=== PATIENT | male | born 1940 | race Hispanic/Latino ===

== ENCOUNTER 2017-09-15 06:10 | Day surgery (SDC) | payer OTHER ==
[2017-09-14 13:17] LABS: Absolute Lymphocytes (CBC) 1.4 K/uL (0.7-4.9); Absolute Monocytes 0.4 K/uL (0.1-1.3); Absolute Neutrophil 4.7 K/uL (1.8-8.0); Basophils % 0.9 % (0-1.3); Eosinophils % 3.5 % (0-4.4); Hematocrit 40.8 % (39.6-49.0); Lymphocytes % 20.5 % (15.3-44.8); MCH 31.6 pg (27.0-35.0); MCV 90.8 fL (80-100); MPV 9.5 fL (7.6-11.3); Monocytes % 6.3 % (3.3-12.3); RBC Red Blood Cell Count 4.49 M/uL (4.33-5.43)
--- NOTE | 2017-09-14 19:06 | EKG ---
Test Date: 2017-09-14 Test Time: 12:43:16 Circuitry Negative Inspector: ALISIA MEASUREMENT RESULTS: Intervals: Rate: 63 AK: 138 QRSD: 92 QT: 404 QTc: 413 Garfield: P: 61 AK: 138 QRS: 12 T: 16 INTERPRETIVE STATEMENTS: Normal sinus rhythm Normal ECG Compared to ECG 02/03/1995 12:51:00 No significant changes Electronically Signed On 09-14-17 19:04:48 CDT by Bk Lopez
[2017-09-15] MEDS ORDERED: PROPOFOL 200 MG/20 ML VIAL IV ONE (07:06)
[2017-09-15] MEDS ORDERED: LIDOCAINE 2% MPF 5 ML VIAL ONE (07:07)
[2017-09-15] MEDS ORDERED: FENTANYL CITR 100 MCG/2 ML ONE ×2 (07:07→08:02)
[2017-09-15] MEDS ORDERED: ONDANSETRON HCL 40 MG/20 ML VIAL ONE (07:08)
[2017-09-15] MEDS ORDERED: BUPIVACA 0.5%/EPI 0.0005%/PF 30 ML VIAL ONE (07:33)
[2017-09-15] MEDS ORDERED: EPHEDRINE SULF 50 MG/10 ML SYR ONE (07:52)
[2017-09-15] MEDS ORDERED: GLYCOPYRROLATE 0.2 MG/ML SYR ONE ×2 (07:55)
[2017-09-15] MEDS ORDERED: CODEINE 30MG/APAP 300MG TAB ONE (10:03)
[2017-09-15 10:38] VITALS: BP 144/89; TEMP 96.6; O2SAT 99
--- NOTE | 2017-09-15 21:13 | OP ---
Date of Procedure: 09/15/2017 Surgeon: Enrique Fowler MD Preoperative Diagnosis: Right knee pain with mechanical symptoms, probable medial and lateral menisc al tears with loose bodies. 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 2.Tear of medial meniscus. 3.Tear of lateral meniscus. 4.Very large loose body. Procedures: 1.Debridement of medial and lateral menisci. 2.Removal of large loose body. Estimated Blood Loss: Less than 10 cc. Complications: There were no complications. Specimens: The loose body was sent to Pathology. Indication For Operation: Mr. Ivory is the patient who came to see me with complaints of locking a nd pain related to his knee. We discussed with him that he does have significant degenerative joint disease, however, a loose body is detected and this may be the source of some of his mechanical sympt oms. He states he understands things as presented and at this time wishes to proceed with arthroscop y for removal of loose body and perhaps alleviating his mechanical symptoms. He has no guarantee mike t this will alleviate his pain as he will have underlying arthritis and he says he understands this a nd wishes to proceed. Description Of Procedure: The patient was taken to the operating room and placed in supine position. General anesthesia was obtained by staff. Following this, a well-padded tourniquet was placed on t he superior right thigh. His right lower extremity was then prepped and draped in usual sterile fash ion for the procedure. After this, a standard superomedial arthroscopy portal was made for placement of a drainage needle. Approximately 20 cc of rather normal-appearing synovial fluid was expressed. This followed by placement of an inferolateral arthroscopy portal, which was placed atraumatically w ith 1 pass. The knee was then sequentially examined including the suprapatellar pouch, medial and la teral gutters, medial and lateral compartments, as well as the notch and patellofemoral joint. Perti nent positives included significant amount of crystalline formation as well as medial and lateral men iscal tears, also seen is a very large loose body. The medial and lateral menisci were debrided ____ as possible. Attention was then turned to the loose body. It was large enough that the media l portal needed to be enlarged in order to remove it and it was then sent to Pathology. The knee was then re- examined in all the above areas with failure to find any other pathology, which is amenable to arthroscopic intervention. The inferior arthroscopy portals were closed. The superomedial arthr oscopy portal was used for placement of Marcaine with epinephrine. This portal was then closed. The patient was awakened and taken to recovery room in good condition. LOUIS Voice ID: [id number] Report ID: [id number]
== END 2017-09-15 10:51 | disposition home or self-care (01) ==
LOC: PRE 06:10
PROVIDERS: ATTEND Orthopaedic Surgery
PROC: 0SBC4ZZ Excision of Right Knee Joint, Percutaneous Endoscopic Approach (ICD-10-PCS; 2017-09-15)
PROC: 0SCC4ZZ Extirpation of Matter from Right Knee Joint, Percutaneous Endoscopic Approach (ICD-10-PCS; 2017-09-15)
PROC: 0SBC4ZZ Excision of Right Knee Joint, Percutaneous Endoscopic Approach (ICD-10-PCS; principal; 2017-09-15 07:30)
DX: M23.41 Loose body in knee, right knee (principal); I10 Essential (primary) hypertension; E11.9 Type 2 diabetes mellitus without complications; M23.200 Derangement of unspecified lateral meniscus due to old tear or injury, right knee; M23.203 Derangement of unspecified medial meniscus due to old tear or injury, right knee; M94.261 Chondromalacia, right knee
CPT/HCPCS: 29880; 36415; 80048; 82962 ×2; 85025; 88300; 93005; J2405; J3010 ×2

== ENCOUNTER 2018-07-02 15:45 | Emergency (ER) | payer OTHER ==
--- NOTE | 2018-07-02 16:42 | RAD REPORT ---
EXAM DESCRIPTION: RAD - Thoracic Spine Ap/Lat - 07/02/2018 4:31 pm CLINICAL HISTORY: PAIN Radiculopathy COMPARISON: None FINDINGS: Thoracic and lumbar spine-multiple projections are submitted Moderate compression fracture is seen affecting the L1 vertebral body. Vertebral body height loss is estimated at 30-40%. No additional fracture or malalignment seen throughout the thoracic or lumbar le vels. Anterior bridging osteophytes are present. Gallstones are present in the right upper quadrant. IMPRESSION: Moderate compression fracture is seen affecting the L1 vertebral body.
[2018-07-02] MEDS ORDERED: HYDROCODONE/APAP 5/325 MG TAB ONE (19:03)
--- NOTE | 2018-07-02 19:17 | RAD REPORT ---
EXAM DESCRIPTION: CT - Chest Abd Pelvis Wo Con - 07/02/2018 7:03 pm CLINICAL HISTORY: Chest and abdomen pain. PAIN COMPARISON: No comparisons TECHNIQUE: A limited noncontrast study was performed. All CT scans are performed using dose optimization technique as appropriate and may include automated exposure control or mA/KV adjustment according to patient size. FINDINGS: The lungs are emphysematous but clear.No pleural or pericardial effusion.No intrathoracic adenopathy. Noncontrast assessment of the liver shows no focal mass or biliary dilatation. Cholelithiasis. The sp robin, left adrenal gland and pancreas are within normal limits. 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 Several bilateral renal calculi are present without hydronephrosis. No bowel obstruction, free air, free fluid or abscess. Normal appendix. Small bilateral fat containin g inguinal hernias. No pathologic lymphadenopathy in the abdomen or pelvis. Mild compression fracture is seen affecting the L4 vertebral body. Moderate compression fracture is s een affecting the L1 vertebral body. IMPRESSION: Lumbar compression fractures are seen, mild affecting L4 and moderate effecting L1. No s ignificant canal compromise. These are likely acute, however, this can be confirmed with MR imaging o f the lumbar spine.
--- NOTE | 2018-07-02 20:51 | ER ---
Nurse's Notes [facility] Name: Vishnu Ivory Sr Age: 78 yrs Sex: Male : 1940 Arrival Date: 07/02/2018 Time: 15:48 Bed 11 Private MD: Diagnosis: Fall on same level from slipping, tripping and stumbling;Fracture of fourth lumbar vertebra-compression;Fracture of first lumbar vertebra-compression Presentation: 07/02 15:58 Presenting complaint: Patient states: fall 3 days ago after tripping c/o mid back pain. sv Hx back sx. Denies LOC. Care prior to arrival: None. Mechanism of Injury: Fall from standing position. Trauma event details: Injury occurred in the [facility], Injury occurred: at home. Injury occurred: June 29, 2018. 15:58 Acuity: SYLVAIN 4 sv 15:58 Method Of Arrival: Wheelchair sv Trauma Activation: Not Applicable Physician: ED Physician; Name: ; Notified At: ; Arrived At: Physician: General Surgeon; Name: ; Notified At: ; Arrived At: Physician: Radiology; Name: ; Notified At: ; Arrived At: Physician: Respiratory; Name: ; Notified At: ; Arrived At: Physician: Lab; Name: ; Notified At: ; Arrived At: Historical: - Allergies: 16:00 No Known Allergies; sv - PMHx: 16:00 Diabetes - NIDDM; Hypertension; COPD; sv - PSHx: 16:00 back; sv Screenin:55 Abuse screen: Denies threats or abuse. Denies injuries from another. Nutritional aj screening: No deficits noted. Tuberculosis screening: No symptoms or risk factors identified. Fall Risk None identified. Assessment: 15:58 General: Appears in no apparent distress. uncomfortable, well developed, Behavior is sv calm, cooperative, appropriate for age. Pain: Complains of pain in back Pain currently is 9 out of 10 on a pain scale. Neuro: Level of Consciousness is awake, alert, obeys commands, Oriented to person, place, time, situation. Respiratory: Respiratory effort is even, unlabored, Respiratory pattern is regular, symmetrical. 18:55 General: Appears in no apparent distress. comfortable, Behavior is calm, cooperative, aj appropriate for age. Pain: Complains of pain in back. Neuro: Level of Consciousness is awake, alert, obeys commands, Oriented to person, place, time, situation, Appropriate for age. Respiratory: Airway is patent Respiratory effort is even, unlabored, Respiratory pattern is regular, symmetrical. Derm: Skin is intact, is healthy with good turgor, Skin is pink, warm \T\ dry. normal. Musculoskeletal: Reports pain in lumbar area. 19:39 Reassessment: Patient appears in no apparent distress at this time. Patient and/or jb4 family updated on plan of care and expected duration. Pain level reassessed. Patient is alert, oriented x 3, equal unlabored respirations, skin warm/dry/pink. Patient states feeling better. 20:39 Reassessment: Patient appears in no apparent distress at this time. Patient and/or jb4 family updated on plan of care and expected duration. Pain level reassessed. Patient is alert, oriented x 3, equal unlabored respirations, skin warm/dry/pink. 21:39 Reassessment: Patient appears in no apparent distress at this time. Patient and/or jb4 family updated on plan of care and expected duration. Pain level reassessed. Patient is alert, oriented x 3, equal unlabored respirations, skin warm/dry/pink. 22:48 Reassessment: Patient appears in no apparent distress at this time. Patient and/or jb4 family updated on plan of care and expected duration. Pain level reassessed. Patient is alert, oriented x 3, equal unlabored respirations, skin warm/dry/pink. Pt transported out of ED via EMS. Family at the bedside. Vital Signs: 16:00 BP 134 / 57; Pulse 95; Resp 18; Temp 99.2; Pulse Ox 97% ; Weight 73.03 kg; Height 5 ft. sv 9 in. (175.26 cm); Pain 9/10; 19:39 BP 158 / 81; Pulse 70; Resp 16; Pulse Ox 97% on R/A; Pain 5/10; jb4 20:45 BP 153 / 69; Pulse 73; Resp 16; Pulse Ox 96% on R/A; jb4 22:48 BP 188 / 72; Pulse 72; Resp 16; Pulse Ox 98% on R/A; jb4 16:00 Body Mass Index 23.78 (73.03 kg, 175.26 cm) sv ED Course: 15:48 Patient arrived in ED. mr 15:59 Triage completed. sv 16:00 Arm band placed on. sv 16:32 XRAY Lumbar Spine (3 Views) In Process Unspecified. EDMS 16:32 XRAY Thoracic Spine (Ap/lat) In Process Unspecified. EDMS 18:03 Shawn Gasca PA is PHCP. cp 18:03 Azael Thomas MD is Attending Physician. cp 18:16 Cami Castaneda, RN is Primary Nurse. aj 18:55 Patient has correct armband on for positive identification. aj 19:02 Chest Abd Pelvis Wo Con In Process Unspecified. EDMS 20:24 Morteza Bain MD is Attending Physician. cp 20:43 Initial lab(s) drawn, by wi, sent to lab. Inserted saline lock: 20 gauge in right jb4 antecubital area, using aseptic technique. Blood collected. 22:48 No provider procedures requiring assistance completed. Patient transferred, IV remains jb4 in place. Administered Medications: 18:54 CANCELLED (Patient Refused): fentaNYL (PF) 25 mcg IM once aj 18:54 Drug: [place] 5 mg-325 mg 1 tabs Route: PO; aj 19:24 Follow up: Response: No adverse reaction; Pain is decreased jb4 Outcome: 20:50 ER care complete, transfer ordered by MD. cp 22:48 Transferred by ground EMS to [facility], Transfer form completed. jb4 22:48 Condition: stable 22:48 Discharge instructions given to patient, family, Instructed on the need for transfer, Demonstrated understanding of instructions. 22:50 Patient left the ED. jb4 Signatures: Dispatcher [employer] Becky Hayden RN RN sv Myers, Amanda, RN Ramila Schaffer mr Shawn Gasca PA PA cp Bryson, James, RN RN jb4
--- NOTE | 2018-07-02 20:51 | EDPHYS ---
Physician Documentation [facility] Name: Vishnu Ivory Sr Age: 78 yrs Sex: Male : 1940 Arrival Date: 07/02/2018 Time: 15:48 Bed 11 Private MD: ED Physician Morteza Bain HPI: 07/02 18:50 This 78 yrs old Male presents to ER via Wheelchair with complaints of Back cp Pain. 18:50 The patient presents with pain that is acute. The symptoms are located in the low back. cp Onset: The symptoms/episode began/occurred 3 day(s) ago. Associated signs and symptoms: Pertinent negatives: abdominal pain, chest pain, constipation, incontinence, weakness. Patient reports fall in yard 3 days ago onto bottom from standing. Historical: - Allergies: 16:00 No Known Allergies; sv - PMHx: 16:00 Diabetes - NIDDM; Hypertension; COPD; sv - PSHx: 16:00 back; sv ROS: 19:00 Constitutional: Negative for body aches, chills, fever, poor PO intake. cp 19:00 Eyes: Negative for injury, pain, redness, and discharge. cp 19:00 Neck: Negative for pain with movement, pain at rest, stiffness, tenderness, bony cp tenderness. 19:00 Cardiovascular: Negative for chest pain, edema, palpitations. 19:00 Respiratory: Negative for cough, shortness of breath, wheezing. 19:00 Abdomen/GI: Negative for abdominal pain, nausea, vomiting, and diarrhea, constipation, black/tarry stool, rectal bleeding, bowel incontinence. 19:00 Back: Positive for pain at rest, pain with movement, of the lumbar area, right mid back and right low back. 19:00 : Negative for urinary symptoms, difficulty urinating, bladder incontinence, testicular pain 19:00 MS/extremity: Negative for injury or acute deformity, decreased range of motion, paresthesias. 19:00 Neuro: Negative for dizziness, loss of consciousness, numbness, syncope, weakness. 19:00 All other systems are negative. Exam: 19:10 Constitutional: The patient appears in no acute distress, alert, awake, cp non-diaphoretic, non-toxic, well developed, well nourished, uncomfortable. 19:10 Head/Face: Normocephalic, atraumatic. cp 19:10 Eyes: Periorbital structures: appear normal, Conjunctiva: normal, no exudate, no injection, Sclera: no appreciated abnormality, Lids and lashes: appear normal, bilaterally. 19:10 ENT: External ear(s): are unremarkable, Nose: is normal, Mouth: Lips: moist, Oral mucosa: moist, Posterior pharynx: is normal, airway is patent. 19:10 Neck: C-spine: vertebral tenderness, is not appreciated, crepitus, is not appreciated, ROM/movement: is normal, is supple, without pain, no range of motions limitations, no nuchal rigidity. 19:10 Chest/axilla: Inspection: normal, Palpation: is normal, no crepitus, no tenderness. 19:10 Cardiovascular: Rate: normal, Rhythm: regular, Edema: is not appreciated, JVD: is not appreciated. 19:10 Respiratory: the patient does not display signs of respiratory distress, Respirations: normal, no use of accessory muscles, no retractions, no splinting, no tachypnea, labored breathing, is not present, Breath sounds: are clear throughout, no decreased breath sounds, no stridor, no wheezing. 19:10 Abdomen/GI: Inspection: abdomen appears normal, Bowel sounds: active, all quadrants, Palpation: abdomen is soft and non-tender, in all quadrants, rebound tenderness, is not appreciated, voluntary guarding, is not appreciated, involuntary guarding, is not appreciated. 19:10 Back: pain, that is moderate, of the lumbar area, right mid back and right low back, ROM is painful, with flexion, Straight leg raises: of both lower extremities does not illicit pain. 19:10 Skin: no rash present. 19:10 Neuro: Orientation: to person, place \T\ time. Mentation: is normal, Motor: moves all fours, Sensation: is normal. Vital Signs: 16:00 BP 134 / 57; Pulse 95; Resp 18; Temp 99.2; Pulse Ox 97% ; Weight 73.03 kg; Height 5 ft. sv 9 in. (175.26 cm); Pain 9/10; 19:39 BP 158 / 81; Pulse 70; Resp 16; Pulse Ox 97% on R/A; Pain 5/10; jb4 20:45 BP 153 / 69; Pulse 73; Resp 16; Pulse Ox 96% on R/A; jb4 22:48 BP 188 / 72; Pulse 72; Resp 16; Pulse Ox 98% on R/A; jb4 16:00 Body Mass Index 23.78 (73.03 kg, 175.26 cm) MDM: 18:03 Patient medically screened. cp 19:00 Differential diagnosis: chronic back pain, Fracture ruptured disc, vertebral fracture. cp 20:05 Data reviewed: vital signs, nurses notes, radiologic studies, CT scan, I have discussed cp the patient's presentation/case with the attending Emergency Department Physician;. 20:30 Counseling: I had a detailed discussion with the patient and/or guardian regarding: the cp historical points, exam findings, and any diagnostic results supporting the discharge/admit diagnosis, radiology results, the need to transfer to another facility, [facility] does not immediately have the required specialist. 20:30 Response to treatment: the patient's symptoms have markedly improved after treatment. 07/02 20:25 Order name: Basic Metabolic Panel; Complete Time: 21:48 cp 07/02 21:49 Interpretation: Normal except: GLUC 111; BUN 22; CRE 1.60; GFR 42. cp 07/02 20:25 Order name: CBC with Diff; Complete Time: 21:48 cp 07/02 16:01 Order name: XRAY Lumbar Spine (3 Views) 07/02 16:01 Order name: XRAY Thoracic Spine (Ap/lat); Complete Time: 18:41 07/02 20:25 Order name: Creatinine for Radiology; Complete Time: 21:48 cp 07/02 20:25 Order name: Type And Screen; Complete Time: 21:48 cp 07/02 18:46 Order name: Chest Abd Pelvis Wo Con; Complete Time: 20:01 EDMS 07/02 20:04 Order name: Misc. Order: ambulate patient; Complete Time: 20:15 cp 07/02 20:25 Order name: Labs collected and sent; Complete Time: 20:49 cp Administered Medications: 18:54 CANCELLED (Patient Refused): fentaNYL (PF) 25 mcg IM once aj 18:54 Drug: [place] 5 mg-325 mg 1 tabs Route: PO; aj 19:24 Follow up: Response: No adverse reaction; Pain is decreased jb4 Disposition: 07/03 14:12 Co-signature as Attending Physician, Morteza Bain MD I agree with the assessment and wa plan of care. Disposition: 07/02/18 20:50 Transfer ordered to [facility]. Diagnosis are Fall on same level from slipping, tripping and stumbling, Fracture of fourth lumbar vertebra - compression, Fracture of first lumbar vertebra - compression. - Reason for transfer: Higher level of care. - Accepting physician is DR Lee. - Condition is Stable. - Problem is new. - Symptoms have improved. Signatures: Dispatcher [employer] EDMS Becky Peraza RN Cami Marks RN RN aj Page, Corey, PA PA Mike Tovar RN BLANCA jb4 Morteza Bain MD MD wa Corrections: (The following items were deleted from the chart) 07/02 18:46 18:44 Thorax Wo Con+CT.RAD.BRZ ordered. EDMS EDMS 18:46 18:44 Abdomen Pelvis Wo Con+CT.RAD.BRZ ordered. EDMS EDMS 18:54 18:43 fentaNYL (PF) 25 mcg IM once ordered. cp aj :41 07/01 19:00 Back: Positive for pain at rest, pain with movement, of the right low back cp and lumbar area, cp 07/02 20:41 07/01 19:00 Constitutional: Negative for body aches, chills, fever, poor PO intake, cp cp 07/02 20:41 07/01 19:00 Eyes: Negative for injury, pain, redness, and discharge, cp cp 07/03 19:07/01 19:00 ENT: Negative for drainage from ear(s), ear pain, sore throat, difficulty cp swallowing, difficulty handling secretions, cp 07/02 20:41 07/01 19:00 Respiratory: Negative for cough, shortness of breath, wheezing, cp cp 07/02 20:41 07/01 19:00 Cardiovascular: Negative for chest pain, edema, palpitations, cp cp 07/02 20:07/01 19:00 Abdomen/GI: Negative for abdominal pain, nausea, vomiting, and diarrhea, cp cp 07/02 20:07/01 19:00 MS/extremity: Negative for injury or acute deformity, decreased range of cp motion, deformity, paresthesias, cp 07/02 20:07/01 19:00 Neuro: Negative for altered mental status, headache, weakness, cp cp 07/02 20:41 07/01 19:00 All other systems are negative, cp cp 07/02 22:50 20:50 07/02/2018 20:50 Transfer ordered to [facility]. jb4 Diagnosis is Fall on same level from slipping, tripping and stumbling; Fracture of fourth lumbar vertebra - compression; Fracture of first lumbar vertebra - compression. Reason for transfer: Higher level of care. Accepting physician is DR Lee. Condition is Stable. Problem is new. Symptoms have improved. cp
[2018-07-02 21:16] LABS: Potassium 3.6 mmol/L (3.5-5.1)
[2018-07-02 21:19] LABS: Absolute Lymphocytes (CBC) 1.7 K/uL (0.7-4.9); Absolute Monocytes 0.7 K/uL (0.1-1.3); Absolute Neutrophil 6.9 K/uL (1.8-8.0); Basophils % 0.7 % (0-1.3); Eosinophils % 2.7 % (0-4.4); Hematocrit 38.8 % (39.6-49.0); Lymphocytes % 17.3 % (15.3-44.8); MPV 10.1 fL (7.6-11.3); Monocytes % 7.1 % (3.3-12.3); RBC Red Blood Cell Count 4.17 M/uL (4.33-5.43)
[2018-07-03 06:04] VITALS: BP 188/72; TEMP 99.2; O2SAT 98
--- NOTE | 2018-07-03 09:41 | RAD REPORT ---
EXAM DESCRIPTION: RAD - Lumbar Spine 3 Views - 07/02/2018 4:36 pm CLINICAL HISTORY: PAIN Radiculopathy COMPARISON: None FINDINGS: Thoracic and lumbar spine-multiple projections are submitted Moderate compression fracture is seen affecting the L1 vertebral body. Vertebral body height loss is estimated at 30-40%. No additional fracture or malalignment seen throughout the thoracic or lumbar le vels. Anterior bridging osteophytes are present. Gallstones are present in the right upper quadrant. IMPRESSION: Moderate compression fracture is seen affecting the L1 vertebral body.
== END 2018-07-02 22:50 | disposition short-term general hospital (02) ==
LOC: ER 15:45
DX: S32.049A Unspecified fracture of fourth lumbar vertebra, initial encounter for closed fracture (principal); S32.019A Unspecified fracture of first lumbar vertebra, initial encounter for closed fracture; W01.0XXA Fall on same level from slipping, tripping and stumbling without subsequent striking against object, initial encounter; Y93.9 Activity, unspecified; Y92.096 Garden or yard of other non-institutional residence as the place of occurrence of the external cause; I10 Essential (primary) hypertension
CPT/HCPCS: 36415; 71250; 72070; 72100; 74176; 80048; 85025; 86850; 86900; 86901; 99285